=== PATIENT | female | born 1980 | race Caucasian/White ===

== ENCOUNTER → 2023-07-01 07:02 | Outpatient (CLI) | payer OTHER, SELFPAY ==
--- NOTE | ~2023-07-01 | MR_ITS ---
MRI of the cervical spine Clinical History: Cervicalgia Technique: Axial T2-weighted and gradient images, and sagittal T1-weighted, T2-weighted, and STIR hank ges were acquired. Findings: There is no fracture or subluxation of the cervical spine. Vertebral bodies maintain normal height and alignment. No bone marrow signal abnormality seen. At C2-C3, there is no disc bulge or herniation. No spinal canal stenosis, cord compression, or neural foraminal narrowing. At C3-C4, there is no disc bulge or herniation. There is left facet arthropathy. No spinal canal sten osis, cord compression, or neural foraminal narrowing. At C4-C5, there is minimal disc osteophyte complex and minimal facet arthropathy, left worse than rig ht. No spinal canal stenosis, cord compression, or neural foraminal narrowing. At C5-C6, there is mild disc osteophyte complex. No spinal canal stenosis, cord compression, or defin ite neural foraminal narrowing. At C6-C7, there is prominent disc osteophyte complex, especially the right paracentral to right luis m inal region. There is mild canal stenosis and mild compression of the ventral cord, especially on the right side. There is bilateral neural foraminal narrowing, right worse than left. No abnormal signal seen in the spinal cord. Paravertebral soft tissues are unremarkable. Impression: Moderate to advanced degenerative spondylosis at C6-C7, as detailed above, with, disc osteophyte comp susan, mild compression of the ventral cord, and bilateral neural foraminal narrowing. Minimal degenerative changes in the remainder of the cervical spine, as above. Reviewed, dictated and finalized at [facility]. [employer]TER Impression: Moderate to advanced degenerative spondylosis at C6-C7, as detailed above, with , disc osteophyte complex, mild compression of the ventral cord, and bilateral neural foraminal narrowing. Minimal degenerative changes in the remainder of the cervical spine, as above.
== END ==
DX: M47.892 Other spondylosis, cervical region (principal)
CPT/HCPCS: 72141